=== PATIENT | female | born 1975 | race Caucasian/White ===

== ENCOUNTER 2023-08-28 14:09 | Outpatient (RCR) | payer OTHER, SELFPAY | END 2023-08-28 23:59 | disposition home or self-care (01) | LOC: RPT 14:09 | PROVIDERS: ATTENDING PHYSICIAN Advanced Practice Midwife; PRIMARYCARE PHYSICIAN Physician Assistant Medical | DX: N81.6 Rectocele (principal); M62.89 Other specified disorders of muscle; N94.10 Unspecified dyspareunia; R10.2 Pelvic and perineal pain; R35.0 Frequency of micturition; Z73.6 Limitation of activities due to disability; K59.00 Constipation, unspecified | CPT/HCPCS: 97014; 97112; 97140; 97530 ==

== ENCOUNTER → 2023-09-22 08:35 | Outpatient (REF) | payer OTHER, SELFPAY | LOC: RAD 08:35 | PROVIDERS: ATTENDING PHYSICIAN Physician Assistant Medical | DX: M25.561 Pain in right knee (principal) | CPT/HCPCS: 73564 ==

== ENCOUNTER 2023-09-25 08:28 | Emergency (ER) | payer OTHER, SELFPAY ==
[2023-09-25 08:31] VITALS: BP 159/99
--- NOTE | 2023-09-25 08:59 | ED.GENMED ---
History of Present Illness
General
Chief Complaint: Musculo-Skeletal Complaint
Source: patient
Exam Limitations: none
Time Seen by Provider: 09/25/23 08:34
Nursing documentation reviewed up to this point in time: agreed with
Travel History
Have you had any contact with someone who has COVID-19?: No
Do you have any symptoms of coronavirus? Fever > 100 degrees, chills, cough, shortness of breath, sore throat, loss of taste or smell, muscle aches, or headache?: No
History of Present Illness
History of Present Illness:
48-year-old female with past medical history of anxiety and BMI 40 presenting to the emergency department today with concerns of right-sided knee pain over the past month and a half. Was previously seen and had an x-ray without emergent findings
but has had ongoing pain that seems to be worse at night. Denies any shortness of breath chest pain nausea vomiting redness or warmth but has no some swelling mainly to the medial aspect of the knee. Has been able to walk and symptoms seem to be
improved during the day with light activity.
Past History
Past History
ED Past Medical History: HTN and Psychiatric (Depression)
ED Past Surgical History: Cholecystectomy and Orthopedic (Left ACL repair)
Social History
Tobacco: Non-smoker
Alcohol: Occasional
Drug: None
Review of Systems
Review of Systems
Allergies reviewed?: Yes
All Other Systems: ROS reviewed and negative except as documented in HPI and ROS
Phy Exam
Physical Exam
Physical Exam:
GENERAL: Alert , in no apparent distress
EYE: pupils equal and reactive
NECK: Supple, no significant adenopathy.
ENT: o/p clr, mmm.
CARDIAC: Regular rate and rhythm .
LUNGS: Clear breath sounds bilaterally, no acute respiratory distress, no wheezes/rales/rhonchi
ABDOMEN: Soft, without focal tenderness, no r/g, no cvat
NEUROLOGICAL: Alert and oriented, no focal neuro deficits
SKIN: Warm and dry, skin intact.
MUSCULOSKELETAL: No obvious swelling to the right leg. Patient does have slight discomfort to the medial aspect of the knee and with stress to the MCL. Otherwise no joint laxity. No edema, well perfused.
PSYCH: Normal and appropriate interaction.
Course
Orders/Labs/Results
Orders:
Orders
09/25/23 08:52
Venous Doppler Lwr Ext Rt [US Periph Venous LOWER Ext RT] Urgent
Comment:
Reason For Exam: leg pain swelliung
Vital Signs
Initial and Last Documented VS:
Initial Vital Signs
Temp Pulse Resp BP Pulse Ox
97.5 F 88 18 159/99 99
09/25/23 08:31 09/25/23 08:31 09/25/23 08:31 09/25/23 08:31 09/25/23 08:31
Last Documented Vital Signs
Temp Pulse Resp BP Pulse Ox
97.5 F 88 18 159/99 99
09/25/23 08:31 09/25/23 08:31 09/25/23 08:31 09/25/23 08:31 09/25/23 08:31
MDM/Problems Addressed
MDM/Problems Addressed:
48-year-old female presenting to the emergency department today with concerns of right-sided knee pain over the past month and a half. Previous x-ray without emergent findings. Symptoms seem the most consistent with MCL injury considering there is
discomfort when stressing the MCL and pain is to the medial aspect. Normal distal pulses no redness or warmth no signs of infection. Ultrasound was performed to ensure no emergent process this was normal without signs of DVT. Patient with likely
ligamentous injury of the knee plan for symptomatic treatment and close follow-up with orthopedics. Return precautions given
*Critical Care Note
Total Time (30-74mins, 75-104mins- exclusive of procedures): Not Applicable
ED Attending Note
-
Portions of this chart may have been created with voice recognition software.� Occasional wrong word or��sound alike� substitutions may have occurred due to the inherent limitations of voice recognition software.
Discharge Plan
Departure
Patient Disposition: Home (Routine Discharge)
Date of Disposition: 09/25/23
Time of Disposition: 10:02
Patient with high blood pressure during this ER visit?: No
Condition: Good
Covid-19: Not Applicable
Discharge Problem:
Knee sprain
Instructions: Knee Sprain (DC)
Prescriptions:
New
oxycodone 5 mg tablet
5 mg PO Q6H PRN (Reason: Pain) Qty: 7 0RF
No Action
Amlodipine
1 dose PO DAILY
fluoxetine 20 MG capsule
20 mg PO DAILY
lamotrigine 100 MG tablet
150 mg PO DAILY
amoxicillin-pot clavulanate 1 TABLET tablet
1 tab PO Q12 Qty: 20 0RF
Referrals:
jB Rivas MD [Family Provider] -
Hal Tate MD [Active] - Follow up in 5-7 days
Activity Restrictions/Additional Instructions:
You came to the emergency department today with concerns of ongoing right-sided knee discomfort. You had a normal ultrasound without signs of blood clot. Please rest ice compress and elevate. Please follow-up closely with orthopedics soon as
possible for further evaluation and management. Return to the emergency department for any worsening, new or concerning symptoms. For severe pain please take 1 oxycodone tablet as needed every 4-[address] or operate machinery
while taking this medication, this can cause drowsiness and altered mental status.
Interventions
Interventions:
*Risk Screen - Suicide Last Done: 09/25/23 08:31
*General Assessment Last Done: 09/25/23 08:31
*Neglect/Abuse Screening Last Done: 09/25/23 08:31
*ED COVID-19 Vaccine History Last Done: 09/25/23 08:31
ED-Musculoskeletal Assessment Last Done: 09/25/23 09:00
[2023-09-25 10:06] VITALS: BP 147/89
== END 2023-09-25 10:11 | disposition home or self-care (01) ==
LOC: EMR 08:28
PROVIDERS: EMERGENCY PHYSICIAN Emergency Medicine; FAMILY PHYSICIAN Family Medicine
DX: S83.91XA Sprain of unspecified site of right knee, initial encounter (principal); X58.XXXA Exposure to other specified factors, initial encounter
CPT/HCPCS: 99284; 93971

== ENCOUNTER → 2023-10-15 13:35 | Outpatient (REF) | payer OTHER, SELFPAY | LOC: MRI 3T 13:35 | PROVIDERS: ATTENDING PHYSICIAN Orthopaedic Surgery; FAMILY PHYSICIAN Physician Assistant Medical | DX: M25.561 Pain in right knee (principal) | CPT/HCPCS: 73721 ==

== ENCOUNTER 2023-11-05 17:00 | Emergency (ER) | payer OTHER, SELFPAY ==
[2023-11-05 17:02] VITALS: BP 180/103
--- NOTE | 2023-11-05 18:13 | ED.MUSCINJ ---
HPI-Injury
General
Chief Complaint: Musculo-Skeletal Complaint
Source: patient
Exam Limitations: none
Time Seen by Provider: 11/05/23 17:19
Nursing documentation reviewed up to this point in time: agreed with
Travel History
Have you had any contact with someone who has COVID-19?: No
Do you have any symptoms of coronavirus? Fever > 100 degrees, chills, cough, shortness of breath, sore throat, loss of taste or smell, muscle aches, or headache?: No
History of Present Illness-Injury
Is this injury a work related problem?: No
Is pt an associate of [facility]?: No
Initial Injury comments:
Patient to ED with complaint of pain to right knee. States she has a known torn meniscus. She was seen by Dr. Dove 2 weeks ago and states she received a steroid injection at that visit. She reports walking up steps today at work and 'tweeked'
her knee. Complains of severe pain to knee. Difficulty with weight bearing. Brought to ED by spouse for eval.
Past History
Past History
ED Past Medical History: HTN and Psychiatric (Depression)
ED Past Surgical History: Cholecystectomy and Orthopedic (Left ACL repair)
Social History
Tobacco: Non-smoker
Alcohol: Occasional
Drug: None
Review of Systems
Review of Systems
Allergies reviewed?: Yes
All Other Systems: ROS reviewed and negative except as documented in HPI and ROS
Constitutional: Reports no symptoms
Musculoskeletal: Reports joint pain (Pain to right knee)
Skin: Reports no symptoms
Neurological: Reports no symptoms
Psychiatric: Reports no symptoms
Musculoskeletal Injury Exam
Musculoskeletal Injury Exam
Right Knee:
Pain with Movement?: Moderate
Tender to palpation?: Moderate
Soft tissue swelling?: None
External deformity and angulation?: None
Joint effusion?: None
Contusion?: None
Hematoma-local bleeding into tissue?: None
Strain- Sprain- Tear (Connective tissue injury)?: Moderate
Crepitus with movement?: No
Joint instability?: No
Malalignment/deformity?: No
Range of motion: Limited
Distal skin color and temperature: normal-warm & good color
Capillary Refill: normal
Normal distal neurovascular exam?: Yes
Phy Exam
General Physical Exam
General Presentation: well appearing and mild distress
General age: appears stated age
General Skin: warm and dry
General Habitus: normal
General Mental: alert
General Hydration: appears well hydrated
Musculoskeletal Exam
Musculoskeletal Exam: neuro vasc intact
Skin Exam
Skin Exam: normal color, warm/dry and no rash
Psychiatric Exam
Psychiatric Exam: normal mood/affect
Injury Course
Orders/Labs/Results
Orders:
Orders
11/05/23 17:13
Knee, Right 4 or More Views [CR Knee- Right 4 Or More View*] Urgent
Comment: tweaked knee today
Reason For Exam: right knee pain has known torn meniscus
11/05/23 18:05
Oxycodone/Acetaminophen [Percocet 5/325] 1 tablet PO NOW STA
11/05/23 18:06
Knee Immobilizer Right-Treatme ONCE
*Radiology
Radiology exam reviewed: radiology read reviewed
*Critical Care Note
Total Time (30-74mins, 75-104mins- exclusive of procedures): Not Applicable
ED Attending Note
-
Portions of this chart may have been created with voice recognition software.� Occasional wrong word or��sound alike� substitutions may have occurred due to the inherent limitations of voice recognition software.
Discharge Plan
Departure
Patient Disposition: Home (Routine Discharge)
Date of Disposition: 11/05/23
Time of Disposition: 18:07
Patient with high blood pressure during this ER visit?: No
Condition: Good
Covid-19: Not Applicable
Discharge Problem:
Acute knee pain
Instructions: Knee Immobilizer (DC), Knee Sprain (DC), Ibuprofen, Using Cold for Pain
Prescriptions:
New
oxycodone-acetaminophen [Percocet] 5-325 mg tablet
1 tab PO Q4H PRN (Reason: Pain) Qty: 12 0RF
No Action
Amlodipine
1 dose PO DAILY
fluoxetine 20 MG capsule
20 mg PO DAILY
lamotrigine 100 MG tablet
150 mg PO DAILY
amoxicillin-pot clavulanate 1 TABLET tablet
1 tab PO Q12 Qty: 20 0RF
oxycodone 5 mg tablet
5 mg PO Q6H PRN (Reason: Pain) Qty: 7 0RF
Referrals:
Simon Dove MD [Active] - Call in 1-3 days for appt
Cherelle Elliott PA-C [Family Provider] -
Interventions
Interventions:
*Risk Screen - Suicide Last Done: 11/05/23 18:27
*General Assessment Last Done: 11/05/23 18:28
*Neglect/Abuse Screening Last Done: 11/05/23 18:27
ED- Fall Risk Assessment Last Done: 11/05/23 18:27
*ED COVID-19 Vaccine History Last Done: 11/05/23 17:09
ED-Musculoskeletal Assessment Last Done: 11/05/23 18:29
[2023-11-05] MEDS: PERCOCET 5/325 1 TABLET PO (18:26)
[2023-11-05 18:27] VITALS: BMI 44.5
== END 2023-11-05 19:18 | disposition home or self-care (01) ==
LOC: EMR 17:00
PROVIDERS: EMERGENCY PHYSICIAN Emergency Medicine; FAMILY PHYSICIAN Physician Assistant Medical
DX: M25.561 Pain in right knee (principal); I10 Essential (primary) hypertension; F32.A Depression, unspecified
CPT/HCPCS: 99283; 73564

== ENCOUNTER 2023-11-09 06:13 | Day surgery (SDC) | payer OTHER, SELFPAY ==
[2023-11-09] VITALS (9 sets, daily range): BP systolic 130–168; BP diastolic 77–97; BMI 43.8
[2023-11-09] MEDS: TYLENOL 1000 MG PO (09:55)
[2023-11-09] MEDS: CELEBREX 200 MG PO (09:55)
[2023-11-09] MEDS: NORMOSOL-R 1000 IV (10:21)
[2023-11-09] MEDS: DILAUDID 0.5 MG IV ×2 (12:14→12:45)
[2023-11-09] MEDS: ZOFRAN 4 MG IV (12:41)
== END 2023-11-09 14:16 | disposition home or self-care (01) ==
LOC: SDS 06:13
PROVIDERS: ATTENDING PHYSICIAN Orthopaedic Surgery; FAMILY PHYSICIAN Physician Assistant Medical
DX: S83.241A Other tear of medial meniscus, current injury, right knee, initial encounter (principal); X50.9XXA Other and unspecified overexertion or strenuous movements or postures, initial encounter
CPT/HCPCS: 29881; 93005

== ENCOUNTER 2023-12-07 16:11 | Outpatient (RCR) | payer OTHER, SELFPAY | END 2023-12-07 23:59 | disposition home or self-care (01) | LOC: RPT 16:11 | PROVIDERS: ATTENDING PHYSICIAN Advanced Practice Midwife; PRIMARYCARE PHYSICIAN Physician Assistant Medical | DX: N81.6 Rectocele (principal); M62.89 Other specified disorders of muscle; N94.10 Unspecified dyspareunia; R10.2 Pelvic and perineal pain; R35.0 Frequency of micturition; K59.00 Constipation, unspecified; Z73.6 Limitation of activities due to disability | CPT/HCPCS: 97014; 97112; 97140; 97530 ==

== ENCOUNTER 2023-12-21 15:56 | Outpatient (RCR) | payer OTHER, SELFPAY | END 2023-12-21 23:59 | disposition home or self-care (01) | LOC: RPT 15:56 | PROVIDERS: ATTENDING PHYSICIAN Advanced Practice Midwife; PRIMARYCARE PHYSICIAN Physician Assistant Medical | DX: N81.6 Rectocele (principal); M62.89 Other specified disorders of muscle; N94.10 Unspecified dyspareunia; R10.2 Pelvic and perineal pain; R35.0 Frequency of micturition; K59.00 Constipation, unspecified; Z73.6 Limitation of activities due to disability | CPT/HCPCS: 97014; 97112; 97140; 97530 ==

== ENCOUNTER 2024-02-13 10:54 | Outpatient (RCR) | payer OTHER, SELFPAY | END 2024-02-13 23:59 | disposition home or self-care (01) | LOC: RPT 10:54 | PROVIDERS: ATTENDING PHYSICIAN Advanced Practice Midwife; PRIMARYCARE PHYSICIAN Physician Assistant Medical | DX: N81.6 Rectocele (principal); M62.89 Other specified disorders of muscle; N94.10 Unspecified dyspareunia; R10.2 Pelvic and perineal pain; R35.0 Frequency of micturition; K59.00 Constipation, unspecified; Z73.6 Limitation of activities due to disability | CPT/HCPCS: 97014; 97110; 97112; 97140; 97530 ==

== ENCOUNTER 2024-03-19 11:27 | Outpatient (RCR) | payer OTHER, SELFPAY | END 2024-03-19 23:59 | disposition home or self-care (01) | LOC: RPT 11:27 | PROVIDERS: ATTENDING PHYSICIAN Advanced Practice Midwife; PRIMARYCARE PHYSICIAN Physician Assistant Medical | DX: N81.6 Rectocele (principal); M62.89 Other specified disorders of muscle; N94.10 Unspecified dyspareunia; R10.2 Pelvic and perineal pain; Z73.6 Limitation of activities due to disability; R35.0 Frequency of micturition; K59.00 Constipation, unspecified | CPT/HCPCS: 97110; 97140; 97530 ==

== ENCOUNTER → 2024-06-06 07:41 | Outpatient (REF) | payer OTHER, SELFPAY | LOC: RSP 07:41 | PROVIDERS: ATTENDING PHYSICIAN Physician Assistant Medical | DX: J30.2 Other seasonal allergic rhinitis (principal); R06.02 Shortness of breath | CPT/HCPCS: 94727; 94729; 88738; 94010 ==

== ENCOUNTER → 2024-07-31 09:47 | Outpatient (REF) | payer OTHER, SELFPAY | LOC: HWRAD 09:47 | PROVIDERS: ATTENDING PHYSICIAN Nurse Practitioner Family; FAMILY PHYSICIAN Physician Assistant Medical | DX: R22.1 Localized swelling, mass and lump, neck (principal) | CPT/HCPCS: 76536 ==

== ENCOUNTER → 2025-01-22 13:09 | Outpatient (REF) | payer OTHER, SELFPAY | LOC: RCS 13:09 | PROVIDERS: ATTENDING PHYSICIAN Orthopaedic Surgery | DX: Z01.818 Encounter for other preprocedural examination (principal) | CPT/HCPCS: 93005 ==

== ENCOUNTER 2025-03-12 09:31 | Outpatient (RCR) | payer OTHER, SELFPAY | END 2025-03-12 23:59 | disposition home or self-care (01) | LOC: RPT 09:31 | PROVIDERS: ATTENDING PHYSICIAN Physician Assistant Medical; FAMILY PHYSICIAN Physician Assistant Medical | DX: M25.562 Pain in left knee (principal); Z73.6 Limitation of activities due to disability; Z98.890 Other specified postprocedural states | CPT/HCPCS: 97110; 97112; 97162; 97530 ==

== ENCOUNTER 2025-04-15 11:13 | Outpatient (RCR) | payer OTHER, SELFPAY | END 2025-04-15 23:59 | disposition home or self-care (01) | LOC: RPT 11:13 | PROVIDERS: ATTENDING PHYSICIAN Physician Assistant Medical; FAMILY PHYSICIAN Physician Assistant Medical | DX: Z47.89 Encounter for other orthopedic aftercare (principal); M25.562 Pain in left knee (principal); Z98.890 Other specified postprocedural states; Z73.6 Limitation of activities due to disability; R26.89 Other abnormalities of gait and mobility; W19.XXXD Unspecified fall, subsequent encounter | CPT/HCPCS: 97110; 97112; 97530 ==